=== PATIENT | male | born 1950 | race Caucasian/White ===

== ENCOUNTER 2017-01-18 10:00 | Day surgery (SDC) | payer MEDICARE, OTHER ==
[~2017-01-18] VITALS: Ht 180.3 cm; Wt 97.5 kg
[~2017-01-18 10:00] MED LIST: ASPI325T24 PO; CYCL10TA; DULO1CAP3 PO; HYDROmorphone HCL 2 MG/ML 1ML VIAL (J1170) As Ordered ONE; LIDOCAINE 2% INJ 100 MG/5 ML SDV (FOR ANES.) As Ordered ONE; LIPI20TA PO; LISI10TA4 PO; MIDAZOLAM INJ 2 MG/2 ML VIAL (J2250) As Ordered ONE; PROPOFOL 200 MG/20 ML VIAL As Ordered ONE; ROCURONIUM BROMIDE 50 MG/5 ML VIAL As Ordered ONE; TRAM50TA2; TRIC145T22 PO; dexameTHASONE 4 MG/ML 1ML VIAL (J1100) As Ordered ONE; fentaNYL 100 MCG/2 ML INJECTION (J3010) As Ordered ONE
[2017-01-18] MEDS ORDERED: LR 1,000 ML IV ONE (10:15)
[2017-01-18] MEDS ORDERED: fentaNYL 100 MCG/2 ML INJECTION (J3010) As Ordered ONE (10:35)
[2017-01-18] MEDS ORDERED: MIDAZOLAM INJ 2 MG/2 ML VIAL (J2250) As Ordered ONE (10:35)
[2017-01-18 10:40] LABS: MEAN CORPUSCULAR HEMOGLOBIN 31.2 pg (27.0-33.0); MEAN CORPUSCULAR HGB CONC 35.6 g/dl (32.0-36.5); MEAN CORPUSCULAR VOLUME 87.4 fl (80.0-96.0); RED CELL DISTRIBUTION WIDTH 12.3 % (11.5-14.5); WHITE BLOOD COUNT 5.1 K/mm3 (4.0-10.0)
[2017-01-18] MEDS ORDERED: fentaNYL 100 MCG/2 ML INJECTION (J3010) IV ONE (10:50)
[2017-01-18] MEDS ORDERED: MIDAZOLAM INJ 2 MG/2 ML VIAL (J2250) IV ONE (10:50)
[2017-01-18 10:52] LABS: ANION GAP 8 MEQ/L (8-16); BLOOD UREA NITROGEN 24 MG/DL (7-18); CALCIUM LEVEL 9.4 MG/DL (8.8-10.2); CARBON DIOXIDE LEVEL 27 MEQ/L (21-32); CHLORIDE LEVEL 108 MEQ/L (98-107); CREATININE FOR GFR 1.07 MG/DL (0.70-1.30); GLOMERULAR FILTRATION RATE > 60.0 (>49); GLUCOSE, FASTING 98 MG/DL (80-110); PHOSPHORUS LEVEL 2.5 MG/DL (2.5-4.9); POTASSIUM SERUM 4.2 MEQ/L (3.5-5.1); SODIUM LEVEL 143 MEQ/L (136-145)
[2017-01-18] MEDS ORDERED: LR 1,000 ML IV SCH ×2 (14:00→14:15)
[2017-01-18] MEDS ORDERED: MEPERIDINE INJ 25 MG/ML VIAL (J2175) IV PRN (14:00)
[2017-01-18] MEDS ORDERED: fentaNYL 100 MCG/2 ML INJECTION (J3010) IV PRN (14:00)
[2017-01-18] MEDS ORDERED: PERCOCET 5MG/325MG TAB PO PRN (14:00)
[2017-01-18] MEDS ORDERED: ONDANSETRON 4MG/2ML VIAL (J2405) IV PRN (14:00)
[2017-01-18] MEDS ORDERED: METOCLOPRAMIDE INJ 10MG/2ML VIAL (J2765) IV PRN (14:00)
[2017-01-18] MEDS ORDERED: NORCO, ANEXSIA 5/325MG TABLET (HYDROcodone/ACETAMINOPHEN) PO PRN ×2 (14:15)
[2017-01-18] MEDS ORDERED: MORPHINE 4 MG/ML 1ML SYRINGE IV PRN (14:15)
--- NOTE | 2017-01-18 14:17 | RO ---
DATE OF PROCEDURE: 01/18/2017 PREOPERATIVE DIAGNOSES: 1. Left shoulder rotator cuff tear. 2. Left shoulder biceps dislocation with biceps tendinitis. 3. Upper border subscapularis tendinosis. POSTOPERATIVE DIAGNOSES: 1. Left shoulder rotator cuff tear. 2. Left shoulder biceps dislocation with biceps tendinitis. 3. Upper border subscapularis tendinosis. PROCEDURE: 1. Left shoulder arthroscopic rotator cuff repair. 2. Left shoulder arthroscopic biceps tenotomy. 3. Left shoulder arthroscopic open sub pectoralis biceps tenodesis. SURGEON: Esthela Watson MD REFINERY OPERATOR HELPER CRUDE UNIT: Magdalene Pena PA-C ANESTHESIA: General endotracheal tube anesthetic. COMPLICATIONS: None. SPECIMENS: None. ESTIMATED BLOOD LOSS: Less than 20 mL. DESCRIPTION OF PROCEDURE: Antibiotics were given intravenously preoperatively. Then successful general endotracheal tube anesthetic was established and he was placed in semi beach chair position, and the spider shoulder diehl was utilized. The left shoulder was prepped and draped in the usual sterile fashion. Then, after appropriate time out, a routine diagnostic arthroscopy was performed through a posterior portal. He had obvious significant biceps tendinitis and a large supraspinatus rotator cuff tendon tear, which was readily identifiable. There was minimal glenohumeral arthritis noted however. I then released the biceps tendon through the anterior working portal and I used the ablator wand. The subscap was generally intact. The upper border was frayed, but it did not appear to be significantly detached. I placed the scope in the subacromial space and readily identified a large supraspinatus rotator cuff tendon tear, which was photographed. A lateral working cannula was established with a spinal needle to localize and I did reestablish the anterior subacromial working portal as well. I performed a bursectomy and subperiosteal dissection of the subacromial portion of the shoulder. I debrided the supraspinatus rotator cuff tendon foot print back to good bleeding bone bed, using a combination of the ablator wand, the shaver and a ringed curette. A rotator cuff grasper showed that this rotator cuff was readily repairable. It was retracted but it was quite mobile. The upper border of the subscap was frayed again, but I did not think there was full detachment that needed repair. Thus at this point, I placed two medial row anchors, first using a spinal needle to localize, I placed the anteromedial row anchor from the [employer] SpeedBridge kit, using the punch and then brought the FiberTape out through the lateral cannula and used the Scorpion suture passer to pass up through the anterior portion medially of the supraspinatus tendon, and that was docked outside of the joint anteriorly. I then placed the medial row anchor posteriorly using spinal needle to localize once again, then used the punch and then inserted the implant and brought the FiberTape out through the lateral cannula then passed with the Scorpion suture passer up through the rotator cuff. Then, once that had been done, I docked outside of the joint. We divided the FiberTape and I grabbed one limb from each medial anchor out through the lateral cannula and first established the anterior lateral row anchor point for the lateral row. Once that was estimated, the punch was placed, and I loaded the anchor and then inserted the anchor making sure I had excellent equal tension on both limbs of the FiberTapes to bring the rotator cuff down to a nice repair. The sutures were then cut short with the FiberTape cutter. I grabbed the two remaining FiberTape from the medial row anchors, brought them out through the lateral cannula, loaded them on the posterolateral SwiveLock anchor outside of the joint, used the punch to place the hole, and then I inserted the anchor, again making sure we had good equal tension all limbs of the FiberTape. This provided excellent watertight closure, except there was a small gap just near the rotator interval, so I used a retention suture from the anteromedial row as a simple suture using the Scorpion suture passer and tied that with a vehicle glass technician. At this point, I then concluded the arthroscopic portion of the procedure. Mrs. Magdalene Pena was critical to the success of that by helping to hold the scope several times throughout the operation and helped to manipulate the sutures and helped me to perform the operation smoothly and efficiently. Then made a small anterior longitudinal incision in the anterior axillary fold. Bovie cautery was used to coagulate crossing vessels. I dissected down underneath the deltoid, identified the biceps tendon and retrieved it. It was noteworthy to be very frayed and tendinotic and basically splayed and flattened. I made a small subperiosteal Bovie clearance of the bone in the bicipital groove , drilled with a Mitek anchor and passed the G2 Mitek anchor without difficulty. It was then whip stitched at the myotendinous junction. The excess tendon was cut short and I dunked the tendon and tied it to the anchor. I copiously irrigated the wound. The wound was closed with interrupted #2-0 PDS sutures. Skin was closed with nylon sutures as were the rest of the arthroscopy portals. Dry sterile bulky dressing was then applied. He was placed on his abduction pillow, brace and sling and then awakened from general endotracheal tube anesthesia after having tolerated the procedure well and then transferred to the recovery room in stable condition. There were no intraoperative complications. VERNA
[2017-01-18 16:18] VITALS: BP 130/78
== END 2017-01-18 16:26 | disposition home or self-care (01) ==
LOC: M SDC 10:00
PROVIDERS: ATTEND Orthopaedic Surgery
DX: M75.112 Incomplete rotator cuff tear or rupture of left shoulder, not specified as traumatic (principal); M75.22 Bicipital tendinitis, left shoulder; M25.512 Pain in left shoulder; I25.10 Atherosclerotic heart disease of native coronary artery without angina pectoris; I25.2 Old myocardial infarction; I10 Essential (primary) hypertension; N40.0 Benign prostatic hyperplasia without lower urinary tract symptoms; Z79.82 Long term (current) use of aspirin; F32.9 Major depressive disorder, single episode, unspecified; F41.9 Anxiety disorder, unspecified; Z79.899 Other long term (current) drug therapy
CPT/HCPCS: 23405; 29827; 29828; 36415; 64415; 80069; 85027; 88304; A4649; J0690; J1100; J1170; J2250; J3010

== ENCOUNTER 2018-08-18 11:15 | Day surgery (SDC) | payer MEDICARE, OTHER ==
[~2018-08-18] VITALS: Ht 177.8 cm; Wt 100.7 kg
[~2018-08-18 11:15] MED LIST changes: +ASPI-255 PO; -ASPI325T24 PO; -HYDROmorphone HCL 2 MG/ML 1ML VIAL (J1170) As Ordered ONE; -LIDOCAINE 2% INJ 100 MG/5 ML SDV (FOR ANES.) As Ordered ONE; +LR 1,000 ML IV ONE; -MIDAZOLAM INJ 2 MG/2 ML VIAL (J2250) As Ordered ONE; -PROPOFOL 200 MG/20 ML VIAL As Ordered ONE; -ROCURONIUM BROMIDE 50 MG/5 ML VIAL As Ordered ONE; -dexameTHASONE 4 MG/ML 1ML VIAL (J1100) As Ordered ONE; -fentaNYL 100 MCG/2 ML INJECTION (J3010) As Ordered ONE
[2018-08-18] MEDS ORDERED: CYMB60CA3 PO (12:01)
[2018-08-18] MEDS ORDERED: ROPIvacaine 0.5% 30 ML INJECTION (J2795 PER 1MG) As Ordered ONE (12:56)
[2018-08-18] MEDS ORDERED: TRIAMCINOLONE ACETONIDE SUSP 40 MG/ML VIAL (J3301) As Ordered ONE (13:49)
--- NOTE | 2018-08-18 14:35 | RO ---
DATE OF PROCEDURE: 08/18/2018 PREOPERATIVE DIAGNOSES: Left knee osteoarthritis and medial meniscus tear. POSTOPERATIVE DIAGNOSES: Left knee osteoarthritis with medial meniscus tear and large medial plica. PROCEDURE: Left knee operative arthroscopy, partial medial and lateral meniscectomy. SURGEON: Clem Pena MD ANESTHESIA: General: ESTIMATED BLOOD LOSS (EBL): Minimal. COMPLICATIONS: None. INDICATIONS: This is a 67-year-old gentleman who has had some persistent knee pain. MRI scan was consistent with arthritis and meniscus tear and he was trying to avoid knee replacement. He does have multiple medical problems. He wished to go ahead with an arthroscopy, hoping that this would reduce his symptoms. He understood the nature of this, the risks of bleeding, infection, damage to nerves, vessels, persistent pain, blood clots, medical problems, among others. DESCRIPTION OF PROCEDURE: Patient was taken to the operating room, placed in supine position after general anesthesia was induced. The left lower extremity was prepped and draped in usual sterile fashion. A tourniquet was inflated after inferomedial and collateral portals per routine. Identified patellofemoral joint, which had grade 4 changes of the patella and trochlea, proceeded down both gutters. There was a very large medial plica. Medial meniscus was identified, and there was a complex large posterior horn medial meniscus tear that was debrided back with a combination of basket punch and 4.2 shaver. I then reprobe the medial meniscus. Again, there was some arthritic change in the medial compartment that was grade 2 to 3. I then proceeded to the notch. The anterior cruciate ligament (ACL) was unremarkable. Lateral compartment was identified. There was a posterior horn lateral meniscus tear that was resected with combination of basket punch and 4.2 shaver back to a stable rim. The remaining lateral meniscus was in pretty good shape. There were some mild grade 1 changes, some early grade 2 changes on the lateral compartment. I then proceeded back to patellofemoral joint and excised the thickened plica which I actually had to use a basket punch to get through it was so thick and then shaved it back down. I irrigated copiously, removed the instrumentation, closed the portals using #4-0 nylon suture, injected 30 mL of Naropin with 20 mg of Kenalog. Sterile dressing was applied. Tourniquet had been deflated. It was removed and the patient was taken to recovery room in stable condition. There were no known complications. The plan will be routine postop.
[2018-08-18 14:55] VITALS: BP 134/79
[2018-08-18] MEDS ORDERED: ONDANSETRON 4MG/2ML VIAL (J2405) IV PRN (15:00)
[2018-08-18] MEDS ORDERED: fentaNYL 100 MCG/2 ML INJECTION (J3010) IV PRN (15:00)
[2018-08-18] MEDS ORDERED: LR 1,000 ML IV SCH ×2 (15:00)
[2018-08-18] MEDS ORDERED: PERCOCET 5MG/325MG TAB PO PRN (15:00)
[2018-08-18] MEDS ORDERED: ACETAMINOPH W/CODEINE #3 TAB UD PO PRN (15:00)
== END 2018-08-18 15:18 | disposition home or self-care (01) ==
LOC: M SDC 11:15
PROVIDERS: ATTEND Orthopaedic Surgery
DX: M17.12 Unilateral primary osteoarthritis, left knee (principal); S83.242A Other tear of medial meniscus, current injury, left knee, initial encounter; M67.52 Plica syndrome, left knee; I25.10 Atherosclerotic heart disease of native coronary artery without angina pectoris; I25.2 Old myocardial infarction; Z79.82 Long term (current) use of aspirin; Z79.899 Other long term (current) drug therapy; I10 Essential (primary) hypertension; E78.5 Hyperlipidemia, unspecified; Z95.1 Presence of aortocoronary bypass graft; Y93.9 Activity, unspecified; Y92.9 Unspecified place or not applicable
CPT/HCPCS: 29880; J0690; J2795; J3301

== ENCOUNTER 2018-11-21 12:24 | Day surgery (SDC) | payer MEDICARE, OTHER ==
[~2018-11-21] VITALS: Ht 177.8 cm; Wt 100.2 kg
[~2018-11-21 12:24] MED LIST changes: +CYMB60CA3 PO; -DULO1CAP3 PO; +DULO1CAP6 PO; -LR 1,000 ML IV ONE; +NS 1,000 ML IV ONE
[2018-11-21] MEDS ORDERED: PROPOFOL 200 MG/20 ML VIAL As Ordered ONE (12:50)
[2018-11-21] MEDS ORDERED: LIDOCAINE 2% INJ 100 MG/5 ML SDV (FOR ANES.) As Ordered ONE (12:50)
[2018-11-21] MEDS ORDERED: fentaNYL 100 MCG/2 ML INJECTION (J3010) As Ordered ONE (13:47)
--- NOTE | 2018-11-21 14:08 | ROOR ---
Patient Name: Francis Davis Procedure Date: 11/21/2018 1:43 PM Date of : 1950 Age: 67 Room: [facility] Gender: Male Note Status: Finalized Procedure: Upper GI endoscopy Indications: Suspected esophageal reflux, Follow-up of possible eosinophilic esophagitis (vs reflux related eosinophilia), Chest pain (non cardiac), Chronic cough Providers: Alberto DUMONT MD Referring MD: SHRUTHI BORDEN MD Requesting Provider: Medicines: Monitored Anesthesia Care Complications: No immediate complications. Procedure: Pre-Anesthesia Assessment: - The heart rate, respiratory rate, oxygen saturations, blood pressure, adequacy of pulmonary ventilation, and response to care were monitored throughout the procedure. The Endoscope was introduced through the mouth, and advanced to the second part of duodenum. The upper GI endoscopy was accomplished without difficulty. The patient tolerated the procedure well. Findings: The lower third of the esophagus was mildly tortuous. The Z-line was regular and was found 38 cm from the incisors. The examined esophagus was normal. This was biopsied with a cold forceps for evaluation of eosinophilic esophagitis. Small Hiatal Hernia. The entire examined stomach was normal. The examined duodenum was normal. Impression: - Mildly tortuous but otherwise normal esophagus. Biopsied to follow up eosinophilia. - Z-line regular, 38 cm from the incisors. - Small Hiatal Hernia. - Normal stomach. - Normal examined duodenum. Recommendation: - Observe patient's clinical course. - Continue present medications. (Omeprazole twice a day). Alberto Dumont MD Alberto DUMONT MD 11/21/2018 2:08:09 PM Electronically signed by Alberto DUMONT MD Number of Addenda: 0 Note Initiated On: 11/21/2018 1:43 PM Estimated Blood Loss: Estimated blood loss: none.
[2018-11-21 14:20] VITALS: BP 131/80
== END 2018-11-21 14:35 | disposition home or self-care (01) ==
LOC: M OPP 12:24
PROVIDERS: ATTEND Internal Medicine Gastroenterology
DX: Q39.9 Congenital malformation of esophagus, unspecified (principal); K20.0 Eosinophilic esophagitis; K44.9 Diaphragmatic hernia without obstruction or gangrene; R07.89 Other chest pain; R05 Cough; Z79.82 Long term (current) use of aspirin; Z79.899 Other long term (current) drug therapy; Z79.891 Long term (current) use of opiate analgesic
CPT/HCPCS: 43239; 88305; J3010

== ENCOUNTER → 2019-05-28 | Outpatient (REF) | payer MEDICARE, OTHER ==
[~2019-05-28] MED LIST changes: -NS 1,000 ML IV ONE
== END ==
LOC: M LAB REF 16:27
PROVIDERS: ATTEND Nurse Practitioner Family
DX: L08.9 Local infection of the skin and subcutaneous tissue, unspecified (principal)

== ENCOUNTER → 2020-03-03 | Outpatient (REF) | payer MEDICARE, OTHER ==
[~2020-03-03] MED LIST changes: +CYCL-707; -CYCL10TA
== END ==
LOC: M LAB REF 09:15
PROVIDERS: ATTEND Surgery
DX: L72.0 Epidermal cyst (principal)

== ENCOUNTER → 2021-02-17 | Outpatient (CLI) | payer MEDICARE, OTHER ==
[~2021-02-17] MED LIST changes: +LISI10TA22 PO; -LISI10TA4 PO
--- NOTE | 2021-02-17 12:18 | REP ---
INDICATION: NEOPLASM OF UNCER BEHAVIOR OF THYROID COMPARISON: None. TECHNIQUE: Mays scale and color evaluation of the thyroid gland using the linear high frequency transducer. FINDINGS: There is a large heterogeneous vascular nodule involving the isthmus measuring 4.4 x 4.1 x 2.7 cm. Right thyroid lobe appears normal and measures 3.0 x 1.3 x 1.2 cm. Left thyroid lobe appears normal and measures 3.9 x 1.5 x 1.7 cm. IMPRESSION: Large solid nodule involving the isthmus. No prior examinations are available for comparison. Biopsy may be considered for definitive diagnosis. <Electronically signed by Hector Bridges > 02/17/21 [id number]
== END ==
LOC: M RAD 11:20
PROVIDERS: ATTEND Internal Medicine
DX: D44.0 Neoplasm of uncertain behavior of thyroid gland (principal)

== ENCOUNTER → 2021-03-01 | Outpatient (REF) | payer MEDICARE, OTHER ==
[~2021-03-01] MED LIST changes: -CYMB60CA3 PO; +CYMB60CA4 PO
== END ==
LOC: M LAB REF 18:25
PROVIDERS: ATTEND Internal Medicine Endocrinology, Diabetes & Metabolism
DX: E04.1 Nontoxic single thyroid nodule (principal)

== ENCOUNTER → 2022-08-08 | Outpatient (CLI) | payer MEDICARE, OTHER | LOC: M WUC 11:55 | PROVIDERS: ATTEND Physician Assistant | DX: S90.212A Contusion of left great toe with damage to nail, initial encounter (principal); S92.422A Displaced fracture of distal phalanx of left great toe, initial encounter for closed fracture; X58.XXXA Exposure to other specified factors, initial encounter; Y92.9 Unspecified place or not applicable; Y93.9 Activity, unspecified; Y99.9 Unspecified external cause status ==

== ENCOUNTER → 2024-06-01 | Outpatient (REF) | payer MEDICARE, OTHER ==
[2024-06-01 13:02] LABS: APPEARANCE, URINE CLEAR (CLEAR); BACTERIA, URINE AUTO NEGATIVE (NEGATIVE); BILIRUBIN, URINE AUTO NEGATIVE (NEGATIVE); BLOOD, URINE BLOOD 1+ (NEGATIVE); COLOR, URINE YELLOW (YELLOW); GLUCOSE, URINE (UA) AUTO 3+ mg/dL (NEGATIVE); KETONE, URINE AUTO NEGATIVE (NEGATIVE); LEUKOCYTE ESTERASE, URINE AUTO NEGATIVE (NEGATIVE); NITRITE, URINE AUTO NEGATIVE (NEGATIVE); PROTEIN, URINE AUTO NEGATIVE (NEGATIVE); RBC, URINE AUTO 12 /HPF (0-3); SPECIFIC GRAVITY URINE AUTO 1.005 (1.002-1.035); SQUAMOUS EPITHELIAL CELL UR AU 0 /HPF (0-6); UROBILINOGEN, URINE AUTO 0.2 mg/dL (0.0-2.0); WBC, URINE AUTO 6 /HPF (0-3)
== END ==
LOC: M SMT 12:35
PROVIDERS: ATTEND Physician Assistant
DX: R31.21 Asymptomatic microscopic hematuria (principal)

== ENCOUNTER → 2024-08-25 | Outpatient (REF) | payer MEDICARE, OTHER ==
[2024-08-25 13:18] LABS: APPEARANCE, URINE CLEAR (CLEAR); BACTERIA, URINE AUTO NEGATIVE (NEGATIVE); BILIRUBIN, URINE AUTO NEGATIVE (NEGATIVE); BLOOD, URINE BLOOD NEGATIVE (NEGATIVE); COLOR, URINE STRAW (YELLOW); GLUCOSE, URINE (UA) AUTO 3+ mg/dL (NEGATIVE); KETONE, URINE AUTO NEGATIVE (NEGATIVE); LEUKOCYTE ESTERASE, URINE AUTO NEGATIVE (NEGATIVE); NITRITE, URINE AUTO NEGATIVE (NEGATIVE); PROTEIN, URINE AUTO NEGATIVE (NEGATIVE); RBC, URINE AUTO 0 /HPF (0-3); SPECIFIC GRAVITY URINE AUTO 1.003 (1.002-1.035); SQUAMOUS EPITHELIAL CELL UR AU 0 /HPF (0-6); UROBILINOGEN, URINE AUTO 0.2 mg/dL (0.0-2.0); WBC, URINE AUTO 0 /HPF (0-3)
== END ==
LOC: M SMT 12:47
PROVIDERS: ATTEND Physician Assistant
DX: R31.21 Asymptomatic microscopic hematuria (principal)